=== PATIENT | male | born 1970 | race Caucasian/White ===

== ENCOUNTER 2023-10-03 04:02 | Emergency (ER) | payer BC ==
[2023-10-03 04:24] LABS: #Basophils 0.1 thou/uL (0.0-0.2); #Eosinphils 0.2 thou/uL (0.0-0.7); #Lymphocytes 2.9 thou/uL (1.20-3.40); #Neutrophils 3.2 thou/uL (1.40-6.50); %Basophils 1.3 % (0.0-1.0); %Eosinophils 2.3 % (0.0-10.0); %Lymphocytes 39.7 % (21.0-51.0); %Monocytes 13.3 % (0.0-10.0); %Neutrophils 43.4 % (42.0-75.0); Hematocrit 48.4 % (42.0-52.0); Mean Corpuscular HGB CONC 33.1 g/dL (32.0-36.0); Mean Corpuscular Volume 84.6 fl (78.0-98.0); Mean Platelet Volume 7.8 fL (7.4-10.4); Platelet Count 245 10x3/uL (130-400); RBC Distribution Width 12.8 % (11.5-14.5); Red Blood Cell (RBC) Count 5.72 mill/uL (4.70-6.10); White Blood Cell (WBC) Count 7.3 10x3/uL (4.8-10.8)
[2023-10-03 04:38] LABS: INR-International Normal Ratio 0.9; Prothrombin Time 11.9 sec (12.0-14.7)
[2023-10-03 04:39] LABS: PTT 25.5 sec (22.9-36.1)
[2023-10-03] MEDS ORDERED: dilTIAZem 125 MG/25 ML SDV ONE (04:46)
[2023-10-03] MEDS ORDERED: dilTIAZem 25 MG/5 ML VIAL ONE (04:46)
[2023-10-03 04:47] LABS: ALT (SGPT) 67 U/L (8-55); AST (SGOT) 33 U/L (5-34); Albumin 3.8 g/dL (3.5-5.0); Alkaline Phosphatase 52 U/L (40-110); Anion Gap 16 mmol/L (10-20); BUN (Urea Nitrogen) 27 mg/dL (8.4-25.7); Bilirubin, Total 0.7 mg/dL (0.2-1.2); Calc. Creatinine Clearance 0 mL/min (70-130); Calcium 9.9 mg/dL (7.8-10.44); Carbon Dioxide 22 mmol/L (22-29); Chloride 104 mmol/L (98-107); Estimated GFR 73; Globulin 2.5 g/dL (2.4-3.5); Glucose 150 mg/dL (70-105); Potassium 3.7 mmol/L (3.5-5.1); Protein, Total 6.3 g/dL (6.0-8.3); Sodium 138 mmol/L (136-145)
[2023-10-03 04:48] LABS: Troponin I Less than 0.010 ng/mL (< 0.028)
[2023-10-03] MEDS ORDERED: Enoxaparin 100 MG (1 mL) SYRINGE ONE (05:13)
[2023-10-03] MEDS ORDERED: Enoxaparin 30 MG (0.3 mL) SYRINGE ONE (05:13)
== END 2023-10-03 06:31 | disposition short-term general hospital (02) ==
LOC: BURERS 04:02
DX: I48.91 Unspecified atrial fibrillation (principal); E11.9 Type 2 diabetes mellitus without complications; I10 Essential (primary) hypertension
CPT/HCPCS: 71045; 80053; 83880; 84484; 85025; 85610; 85730; 93005; 96365; 96372; 96376; J1650